=== PATIENT | female | born 1985 | race African-American/Black ===

== ENCOUNTER 2018-04-21 10:15 | Emergency (ER) | payer MEDICAID ==
[~2018-04-21] VITALS: Ht 157.5 cm; Wt 51.2 kg
[2018-04-21] MEDS ORDERED: SODIUM CHLORIDE 0.9% 1,000 ML IV ONE (10:32)
[2018-04-21] MEDS ORDERED: LORAZEPAM 2MG/ML CPJ IV ONE (10:45)
[2018-04-21] MEDS ORDERED: PROPOFOL 10MG/ML 100ML 100 ML IV SCH (11:00)
[2018-04-21] MEDS ORDERED: MORPHINE SULFATE 4 MG/ML CPJ (NOT FOR IM USE) IV ONE (11:00)
[2018-04-21] MEDS ORDERED: HYDROCODONE/ACETAMINOPHEN 5/325MG TABLET PO ONE (11:15)
[2018-04-21] MEDS ORDERED: ONDANSETRON 4MG ODT PO ONE (13:00)
[2018-04-21 13:07] VITALS: BP 123/59
== END 2018-04-21 13:10 | disposition home or self-care (01) ==
LOC: ER 10:30
DX: S03.00XA Dislocation of jaw, unspecified side, initial encounter (principal); Z98.890 Other specified postprocedural states; X58.XXXA Exposure to other specified factors, initial encounter; Y93.89 Activity, other specified; Y92.018 Other place in single-family (private) house as the place of occurrence of the external cause
CPT/HCPCS: 21480; 96374; 96375; 99152; 99285; J2060; J2270; J2704; J7030; Q0162; Z7610